=== PATIENT | female | born 1980 | race African-American/Black ===

== ENCOUNTER 2017-05-16 09:47 | Emergency (ER) | payer OTHER ==
[~2017-05-16 09:47] MED LIST: ATENOLOL25 MG; HYDROCHLOROTH12.5 M2
[2017-05-16 12:28] VITALS: BP 126/79
== END 2017-05-16 12:27 | disposition home or self-care (01) ==
LOC: ED 09:47
DX: R51 Headache (principal); I10 Essential (primary) hypertension; Z88.8 Allergy status to other drugs, medicaments and biological substances
CPT/HCPCS: J1200; J2765

== ENCOUNTER 2017-08-23 07:37 | Emergency (ER) | payer OTHER ==
[~2017-08-23] VITALS: Ht 160 cm; Wt 77.6 kg
[2017-08-23 07:41] VITALS: Ht 160 cm; Wt 77.6 kg
[2017-08-23 08:35] LABS: BASOPHIL % 0.3 % (0-2); RED CELL DISTRIBUTION WIDTH 12.9 % (11.5-14.5)
[2017-08-23 08:38] LABS: CALCIUM 8.5 mg/dL (8.5-10.1); CARBON DIOXIDE 25.9 mmol/L (21-32); CHLORIDE SERUM 112 mmol/L (98-107); CREATININE SERUM 0.9 mg/dL (0.6-1.0); GFR1 > 60 mL/min; GLUCOSE SERUM 101 mg/dL (74-106); SODIUM SERUM 145 mmol/L (136-145)
[2017-08-23 09:14] LABS: PLATELET COUNT 146 x10^3mcL (130-400)
[2017-08-23 09:54] VITALS: BP 115/70
== END 2017-08-23 09:54 | disposition home or self-care (01) ==
LOC: ED 07:37
PROVIDERS: Emergency Medicine
DX: R42 Dizziness and giddiness (principal); I10 Essential (primary) hypertension; Z88.8 Allergy status to other drugs, medicaments and biological substances
CPT/HCPCS: 36415

== ENCOUNTER 2017-12-30 09:16 | Emergency (ER) | payer OTHER ==
[~2017-12-30] VITALS: Ht 160 cm; Wt 76.7 kg
[2017-12-30 10:08] LABS: BASOPHIL % 0.2 % (0-2); PLATELET COUNT 177 x10^3mcL (130-400)
[2017-12-30 10:37] LABS: CALCIUM 9.2 mg/dL (8.5-10.1); CARBON DIOXIDE 30.3 mmol/L (21-32); CHLORIDE SERUM 102 mmol/L (98-107); CREATININE SERUM 0.9 mg/dL (0.6-1.0); GFR1 > 60 mL/min; GLUCOSE SERUM 92 mg/dL (74-106); POTASSIUM SERUM 3.3 mmol/L (3.5-5.1); SODIUM SERUM 138 mmol/L (136-145)
[2017-12-30 10:42] LABS: ALBUMIN 3.9 g/dL (3.4-5.0); ALKALINE PHOSPHATASE 64 U/L (46-116); ALT/SGPT 22 U/L (14-59); AST/SGOT 17 U/L (15-37); BILIRUBIN TOTAL 0.63 mg/dL (0.20-1.00); TOTAL PROTEIN, SERUM 7.5 g/dL (6.4-8.2)
[2017-12-30 12:27] VITALS: BP 127/58
== END 2017-12-30 12:50 | disposition home or self-care (01) ==
LOC: ED 09:16
DX: M94.0 Chondrocostal junction syndrome [Tietze] (principal); E87.6 Hypokalemia; I10 Essential (primary) hypertension; Z88.8 Allergy status to other drugs, medicaments and biological substances
CPT/HCPCS: 83880; J1885; Q0092

== ENCOUNTER 2018-03-16 22:52 | Emergency (ER) | payer OTHER ==
[~2018-03-16] VITALS: Ht 160 cm; Wt 79.4 kg
[2018-03-16 23:00] VITALS: Ht 160 cm; Wt 79.4 kg
[2018-03-17 00:22] VITALS: BP 146/90
== END 2018-03-17 00:22 | disposition home or self-care (01) ==
LOC: ED 22:52
DX: S16.1XXA Strain of muscle, fascia and tendon at neck level, initial encounter (principal); I10 Essential (primary) hypertension; G43.909 Migraine, unspecified, not intractable, without status migrainosus; Z91.040 Latex allergy status; V49.88XA Car occupant (driver) (passenger) injured in other specified transport accidents, initial encounter; Y93.89 Activity, other specified; Y92.89 Other specified places as the place of occurrence of the external cause; Y99.8 Other external cause status
CPT/HCPCS: J1885; J2001

== ENCOUNTER 2018-07-19 14:42 | Emergency (ER) | payer OTHER ==
[~2018-07-19] VITALS: Ht 160 cm; Wt 80.3 kg
[2018-07-19 15:19] VITALS: BP 145/109; Ht 160 cm; Wt 80.3 kg
== END 2018-07-19 17:30 | disposition home or self-care (01) ==
LOC: ED 14:42
DX: G43.909 Migraine, unspecified, not intractable, without status migrainosus (principal); I10 Essential (primary) hypertension; Z91.040 Latex allergy status
CPT/HCPCS: J0780; J1885